=== PATIENT | male | born 1980 | race Caucasian/White ===

== ENCOUNTER 2016-08-23 17:27 | Emergency (ER) | payer MEDICARE, MEDICAID ==
[~2016-08-23] VITALS: Ht 162.6 cm; Wt 122.4 kg
[~2016-08-23 17:27] MED LIST: PRINIVIL20 MG PO
[2016-08-23] MEDS ORDERED: HYDROCHLOROTH12.5 M1 PO (17:41)
== END 2016-08-23 17:54 | disposition short-term general hospital (02) ==
LOC: ER 17:27
DX: A08.4 Viral intestinal infection, unspecified (principal); I10 Essential (primary) hypertension; Z79.899 Other long term (current) drug therapy